=== PATIENT | male | born 1995 | race Caucasian/White ===

== ENCOUNTER 2016-06-26 11:38 | Emergency (ER) | payer SELFPAY ==
[2016-06-26 11:39] VITALS: BP 124/68; PULSE 96; RESP 15; TEMP 98.1; O2SAT 98
--- NOTE | 2016-06-26 12:08 | PD ---
HPI Chief Complaint: Laceration/Skin Injury Time Seen by Provider: 12:17 Travel History International Travel<30 days: No Contact w/Intl Traveler<30days: No Traveled to known affect area: No History of Present Illness HPI 20-year-old right-hand dominant male presents to ED for evaluation of left arm laceration. This was sustained on the patient was attempting to cut a piece of rope, slipped and stabbed himself with a knife in the left forearm. He denies numbness, tingling, weakness, limitations to range of motion of the extremity. Last tetanus immunization 2-3 years ago. He denies chronic health problems, takes no daily medications, NKDA. PFSH Social History Alcohol Use: No Tobacco Use: Yes Substance Use: No Allergies-Medications (Allergen,Severity, Reaction): Coded Allergies: No Known Allergies (Unverified , 06/26/16) Reported Meds & Prescriptions Reported Meds & Active Scripts Active Tramadol (Tramadol HCl) 50 Mg Tab 100 Mg PO Q6H PRN Keflex (Cephalexin) 500 Mg Cap 500 Mg PO Q6H Bactrim DS (Sulfamethoxazole-Trimethoprim) 800-160 Mg Tab 1 Tab PO BID Review of Systems Except as stated in HPI: all other systems reviewed are Neg Physical Exam Narrative GENERAL: Well-nourished, well-developed white male in no acute distress. SKIN: Warm and dry. 3 cm laceration on the anterior aspect of the left forearm. HEAD: Normocephalic. EYES: No scleral icterus. No injection or drainage. NECK: Supple, trachea midline. No JVD or lymphadenopathy. CARDIOVASCULAR: Regular rate and rhythm without murmurs, gallops, or rubs. RESPIRATORY: Breath sounds equal bilaterally. No accessory muscle use. GASTROINTESTINAL: Abdomen soft, non-tender, nondistended. MUSCULOSKELETAL: No cyanosis, or edema. FOCUSED LEFT UPPER EXTREMITY EXAM: 2+ radial pulse. Patient maintains flexion, extension, pronation, supination of the wrist. Patient is able to strongly flex and extend the fingers of the extremity. Resisted flexion elicits pain. BACK: Nontender without obvious deformity. No CVA tenderness. Data Data Last Documented VS Vital Signs Date Time Temp Pulse Resp B/P Pulse Ox O2 Delivery O2 Flow Rate FiO2 06/26/16 11:39 98.1 96 15 124/68 98 Orders Oxycodone-Acetamin 5-325 Mg (Percocet (06/26/16 12:15) Lidocai-Epi 1%-1:100,000 Inj (Xylocaine- (06/26/16 12:15) Forearm (2vws) (06/26/16 12:15) Ice/Cold Pack (06/26/16 12:15) MDM Medical Decision Making Medical Screen Exam Complete: Yes Emergency Medical Condition: Yes Differential Diagnosis Abrasion versus laceration versus tendinous injury versus muscular injury versus other Narrative Course 20-year-old right-hand dominant male presents to ED for evaluation of left arm laceration. This was sustained on the patient was attempting to cut a piece of rope, slipped and stabbed himself with a knife in the left forearm. He denies numbness, tingling, weakness, limitations to range of motion of the extremity. Last tetanus immunization 2-3 years ago. Vitals reviewed. Physical exam reveals a 3 cm laceration on the anterior aspect of the left forearm. Patient retains full, active range of motion of the extremity. Resisted flexion of the fingers elicits pain. 2+ radial pulse. X-ray reveals no fracture or foreign body. Laceration repair was performed. Please see my procedure note for details. The patient was provided with prescriptions for Bactrim and Keflex. He was provided outpatient referral to the on-call hand surgeon, Dr. Cooper. We discussed wound care, reasons to return to the ED. Suture removal in 7-10 days. He indicated understanding of the instructions, is amenable to plan of care. He is stable and discharged home. Procedures Procedure Narrative LACERATION LOCATION: Left anterior forearm LENGTH: 3 cm, NUMBER OF STITCHES/DAVE: 3 REPAIR: The area of the laceration was prepped with Betadine and sterilely draped. The laceration was infiltrated with 1% lidocaine with epinephrine. The wound penetrates 2 cm deep, skiving along the subcutaneous layers with a small fascial defect. Wound was copiously irrigated and explored without evidence of foreign body, tendon injury or neurovascular injury. The wound was closed using 4-0 Prolene. This was a single layer repair. A sterile dressing was applied. The patient was advised to keep the dressing clean and dry. Patient tolerated the procedure well. Diagnosis Primary Impression: Laceration of left forearm Qualified Code: S51.812A - Laceration of left forearm, initial encounter Referrals: Noemi Cooper MD Patient Instructions: General Instructions, Laceration (ED) Departure Forms: Tests/Procedures, Work Release Enter return to work date: Jun 30, 2016 Additional Instructions: Rest, hydrate. Return to normal, gentle activities as tolerated. No heavy lifting or overuse of the upper arm for 5 days. Keep the wound clean, dry and covered. Keep the dressing on for 48 hours. After that removed the dressing, wash with warm, soapy water. Pat dry, allow to air dry for 5-10 minutes. Recovered with a clean dry dressing. Take antibiotics as prescribed. Monitor for signs of infection, return as needed, as discussed. Pain medication as needed, as prescribed for pain 6 through 10 on the pain scale 800 mg ibuprofen up to 3 times a day if pain is rated 1 through 5 on the pain scale. Suture removal in 7-10 days. Follow-up with the hand surgeon as discussed. Return to the ED for any urgent or emergent medical condition. Med/Other Pt SpecificInfo: Prescription(s) given Scripts Tramadol 50 Mg [id number] Mg PO Q6H PRN (PAIN) #12 TAB Ref 0 Prov:Isidra Taylor DO 06/26/16 Cephalexin (Keflex)500 Mg [id number] Mg PO Q6H #40 CAP Ref 0 Prov:Isidra Talyor DO 06/26/16 Sulfamethoxazole-Trimethoprim (Bactrim DS)800-160 Mg Tab1 Tab PO BID #14 TAB Ref 0 Prov:Isidra Taylor DO 06/26/16 Disposition: 01 DISCHARGE HOME Condition: Stable Katiuska De Luna Jun 26, 2016 12:08
[2016-06-26] MEDS ORDERED: LIDOCAINE 1%/EPINEPHrine 1:100,000 SOLN 20 ML VIAL INFIL ONE (12:15)
[2016-06-26] MEDS ORDERED: oxyCODONE/ACETAMINOPHEN 5 MG/325 MG TAB PO ONE (12:15)
[2016-06-26] MEDS ORDERED: TRAM50TA PO (14:05)
[2016-06-26] MEDS ORDERED: BACT800T5 PO (14:05)
[2016-06-26] MEDS ORDERED: CEPH-460 PO (14:05)
--- NOTE | 2016-06-26 14:12 | RADRPT ---
EXAM DATE/TIME: 06/26/2016 12:48 [facility] COMPARISON: No previous studies available for comparison. INDICATIONS : Patient was cutting rope and knife slipped and lacerated mid-anterior aspect of forearm. MEDICAL HISTORY : None. SURGICAL HISTORY : None. ENCOUNTER: Initial ACUITY: 1 day PAIN SCORE: 8/10 LOCATION: Left Forearm FINDINGS: Two view examination of the left forearm demonstrates no evidence of fracture or dislocation. Bony m ineralization is normal. The soft tissue structures are intact. CONCLUSION: There is no evidence of acute fracture. Amanuel Sultana MD on June 26, 2016 at 14:11 Board Certified Radiologist. This report was verified electronically.
== END 2016-06-26 14:32 | disposition home or self-care (01) ==
LOC: NETRI 11:38
DX: S51.812A Laceration without foreign body of left forearm, initial encounter (principal); W26.0XXA Contact with knife, initial encounter; Z72.0 Tobacco use
CPT/HCPCS: 12002; 73090